=== PATIENT | female | born 1985 | race Native Hawaiian/Other Pacific Islander ===

== ENCOUNTER 2016-09-02 09:51 | Day surgery (SDC) | payer OTHER | END 2016-09-02 11:20 | disposition home or self-care (01) | LOC: OR 09:51 | PROC: 08RJ3JZ Replacement of Right Lens with Synthetic Substitute, Percutaneous Approach (ICD-10-PCS; principal; 2016-09-02) | DX: H25.811 Combined forms of age-related cataract, right eye (principal) | CPT/HCPCS: 66984; V2632 ==

== ENCOUNTER 2016-11-19 22:04 | Emergency (ER) | payer OTHER ==
[~2016-11-19] VITALS: Ht 157.5 cm; Wt 54.4 kg
[2016-11-19 22:56] LABS: PLATELET COUNT 208 K/uL (152-353)
[2016-11-19 23:03] LABS: POTASSIUM 3.6 mmol/L (3.6-5.2); SODIUM 139 mmol/L (136-145)
[2016-11-20 02:54] VITALS: BP 128/76; TEMP 98.2
== END 2016-11-20 02:57 | disposition home or self-care (01) ==
LOC: ED 22:04
DX: N10 Acute pyelonephritis (principal); R10.84 Generalized abdominal pain
CPT/HCPCS: 36415; 80053; 81000; 85027; 96361; 96365; 96366; 96375; 99284; J0696; J1885; J2405

== ENCOUNTER 2016-11-24 12:23 | Emergency (ER) | payer OTHER ==
[~2016-11-24] VITALS: Ht 157.5 cm; Wt 52.6 kg
[2016-11-24 12:30] VITALS: TEMP 99.1
[2016-11-24 13:17] LABS: PLATELET COUNT 170 K/uL (152-353)
[2016-11-24 13:26] LABS: POTASSIUM 3.5 mmol/L (3.6-5.2); SODIUM 139 mmol/L (136-145)
[2016-11-24 14:30] VITALS: BP 138/92
== END 2016-11-24 14:49 | disposition home or self-care (01) ==
LOC: ED 12:23
DX: N10 Acute pyelonephritis (principal)
CPT/HCPCS: 80053; 81000; 85027; 87088; 99283

== ENCOUNTER 2017-01-21 07:58 | Day surgery (SDC) | payer OTHER ==
[2017-01-17 10:12] LABS: POTASSIUM 4.1 mmol/L (3.6-5.2); SODIUM 137 mmol/L (136-145)
[2017-01-17 10:21] LABS: PLATELET COUNT 189 K/uL (152-353)
[2017-01-17 10:33] LABS: PARTIAL THROMBOPLASTIN TIME 23.9 SECONDS (24.5-33.6)
== END 2017-01-21 10:47 | disposition home or self-care (01) ==
LOC: OR 07:58
PROVIDERS: Student in an Organized Health Care Education/Training Program
PROC: 0DJD8ZZ Inspection of Lower Intestinal Tract, Via Natural or Artificial Opening Endoscopic (ICD-10-PCS; principal; 2017-01-21)
DX: K64.8 Other hemorrhoids (principal); R10.84 Generalized abdominal pain; Z80.0 Family history of malignant neoplasm of digestive organs; R93.8 Abnormal findings on diagnostic imaging of other specified body structures
CPT/HCPCS: 36415; 80053; 81025; 85027; 85610; 85730; J3010

== ENCOUNTER 2017-08-04 14:01 | Emergency (ER) | payer OTHER ==
[~2017-08-04] VITALS: Ht 175.3 cm; Wt 45.4 kg
[2017-08-04 14:28] VITALS: BP 117/84; TEMP 97.2
[2017-08-04 15:10] LABS: PLATELET COUNT 242 K/uL (152-353)
[2017-08-04 15:22] LABS: POTASSIUM 3.8 mmol/L (3.6-5.2); SODIUM 136 mmol/L (136-145)
== END 2017-08-04 16:10 | disposition home or self-care (01) ==
LOC: ED 14:01
PROVIDERS: Family Medicine
DX: R10.32 Left lower quadrant pain (principal); N83.292 Other ovarian cyst, left side; N83.512 Torsion of left ovary and ovarian pedicle
CPT/HCPCS: 36415; 80053; 82150; 83605; 83690; 84484; 85027; 87040; 87804; 99284; J0696; J1170; J2405

== ENCOUNTER 2017-10-30 09:30 | Outpatient (CLI) | payer OTHER | END 2017-10-30 22:27 | disposition home or self-care (01) | LOC: US 09:30 | DX: R59.0 Localized enlarged lymph nodes (principal) ==

== ENCOUNTER 2018-02-18 10:59 | Outpatient (CLI) | payer OTHER | END 2018-02-18 19:29 | disposition home or self-care (01) | LOC: CT 10:59 | DX: R10.9 Unspecified abdominal pain (principal) | CPT/HCPCS: Q9963 ==

== ENCOUNTER 2018-02-18 17:57 | Emergency (ER) | payer OTHER ==
[~2018-02-18] VITALS: Ht 157.5 cm; Wt 52.2 kg
[2018-02-18 19:29] LABS: PLATELET COUNT 167 K/uL (152-353)
[2018-02-18 19:36] LABS: POTASSIUM 3.6 mmol/L (3.6-5.2)
[2018-02-18 21:53] VITALS: BP 96/56; TEMP 98.2
== END 2018-02-18 22:16 | disposition home or self-care (01) ==
LOC: ED 17:57
PROVIDERS: Family Medicine
DX: R11.2 Nausea with vomiting, unspecified (principal); K58.8 Other irritable bowel syndrome
CPT/HCPCS: 80053; 81000; 82150; 83690; 85027; 96365; 96374; 96375; 99284; J2405; J2550; Q9963

== ENCOUNTER 2018-02-19 10:08 | Outpatient (CLI) | payer OTHER | END 2018-02-19 19:31 | LOC: US 10:08 | DX: R10.11 Right upper quadrant pain (principal); R11.2 Nausea with vomiting, unspecified ==

== ENCOUNTER 2018-03-27 15:15 | Outpatient (CLI) | payer OTHER ==
[2018-03-27 16:20] LABS: PLATELET COUNT 170 K/uL (152-353)
[2018-03-27 16:37] LABS: POTASSIUM 3.7 mmol/L (3.6-5.2)
== END 2018-03-27 19:10 | disposition home or self-care (01) ==
LOC: LABW 15:15
PROVIDERS: Student in an Organized Health Care Education/Training Program
DX: R19.7 Diarrhea, unspecified (principal)
CPT/HCPCS: 36415; 80053; 83630; 84436; 84443; 85027; 87015; 87045; 87324; 87328; 87329; 87449; 87899

== ENCOUNTER 2023-01-22 10:23 | Emergency (ER) | payer OTHER ==
[~2023-01-22] VITALS: Ht 157.5 cm; Wt 51.3 kg
[2023-01-22 10:28] VITALS: BP 105/38; TEMP 98.1
[2023-01-22 12:00] LABS: PLATELET COUNT 150 K/uL (152-353)
== END 2023-01-22 14:20 | disposition home or self-care (01) ==
LOC: ED 10:23
PROVIDERS: Family Medicine
DX: B34.9 Viral infection, unspecified (principal); K02.9 Dental caries, unspecified
CPT/HCPCS: 80053; 80307; 81002; 81025; 85027; 87502; 87635; 87651; 96361; 96374; 96375; 99284; J1100; J1885; J2405; U0003